=== PATIENT | female | born 1965 | race Caucasian/White ===

== ENCOUNTER 2020-03-02 07:31 | Outpatient (REF) | payer BC, SELFPAY ==
[2020-03-02 11:17] LABS: Free T4 (Free Thyroxine) 1.41 ng/dL (0.71-1.85); Thyroid Stimulating Hormone 0.55 mIU/mL (0.32-4.0)
== END 2020-03-02 07:32 | disposition home or self-care (01) ==
LOC: HO.10HDL 07:31
PROVIDERS: Visit Provider Internal Medicine
DX: E03.9 Hypothyroidism, unspecified (principal)
CPT/HCPCS: 84439; 84443

== ENCOUNTER 2020-07-22 08:09 | Outpatient (REF) | payer BC, SELFPAY ==
[2020-07-22 11:42] LABS: Alanine Aminotransferase 50 U/L (0-31); Albumin Level 4.2 g/dL (3.5-5.0); Alkaline Phosphatase 71 U/L (39-117); Anion Gap 13 (12-20); Aspartate Amino Transferase 34 U/L (5-31); Bilirubin Total 0.6 mg/dL (0.0-1.0); Blood Urea Nitrogen 17 mg/dL (9-16); Calcium 8.7 mg/dL (8.4-10.2); Carbon Dioxide 23 mmol/L (22-29); Chloride 110 mmol/L (96-108); Estimated Glomerular Filt Rate > 60; Glucose Fasting 97 mg/dL (60-99); Potassium 4.6 mmol/L (3.3-5.1); Sodium 141 mmol/L (135-145); Total Protein 6.6 g/dL (6.5-8.0)
== END 2020-07-22 08:10 | disposition home or self-care (01) ==
LOC: HO.10HDL 08:09
PROVIDERS: Visit Provider Internal Medicine
DX: E03.9 Hypothyroidism, unspecified (principal); K21.9 Gastro-esophageal reflux disease without esophagitis
CPT/HCPCS: 36415; 80053; 84439; 84443

== ENCOUNTER 2020-12-14 08:23 | Outpatient (REF) | payer BC, SELFPAY ==
--- NOTE | ~2020-12-14 | US_ITS ---
EXAMINATION: US ABDOMEN COMPLETE CLINICAL INFORMATION: Elevated liver function tests. COMPARISON: Ultrasound abdomen complete dated 09/18/2006. TECHNIQUE: Real-time imaging of the abdominal viscera. FINDINGS: PANCREAS: Normal. ABDOMINAL AORTA: The proximal, mid, and distal segments are normal in caliber. INFERIOR VENA CAVA: Visualized portions are normal. LIVER: There is coarse inhomogeneous increased echogenicity consistent with primary hepatocellular disease, possibly due to hepatic steatosis. The liver is normal in size. The liver contour is normal. No focal hepatic lesion. There is no intrahepatic biliary duct dilatation seen. GALLBLADDER: Normal. The gallbladder is physiologically distended without evidence of stones, sludge, polyps, wall thickening or pericholecystic fluid. There is no tenderness to palpation over the gallbladder. COMMON BILE DUCT: Normal in caliber measuring 0.4 cm in diameter. RIGHT KIDNEY: Normal. No hydronephrosis. No renal calculi or focal parenchymal lesions. The kidney measures 11.7 cm in maximum dimension. LEFT KIDNEY: Normal. No hydronephrosis. No renal calculi or focal parenchymal lesions. The kidney measures 10.6 cm in maximum dimension. SPLEEN: Normal. The spleen measures 9.5 cm in maximum dimension. FREE FLUID: None. US/US abdomen complete IMPRESSION: 1. There is primary hepatocellular disease, possibly due to hepatic steatosis. No other abnormality is appreciated.
== END 2020-12-14 08:24 | disposition home or self-care (01) ==
LOC: HO.US 08:23
PROVIDERS: PCP Internal Medicine; Visit Provider Internal Medicine
DX: R94.5 Abnormal results of liver function studies (principal)
CPT/HCPCS: 76700

== ENCOUNTER 2020-12-22 08:24 | Outpatient (REF) | payer BC, SELFPAY ==
--- NOTE | ~2020-12-22 | MM_ITS ---
EXAMINATION: MM SCREENING DIGITAL BREAST TOMOSYNTHESIS, BILATERAL CLINICAL INFORMATION: Screening. Asymptomatic. The lifetime risk of breast cancer based on the Tyrer-Cuzick Model is 10%. COMPARISON: Mammography: 12/16/2019, 12/10/2018, 11/20/2017, 11/15/2016, 10/25/2015, 10/21/2014 TECHNIQUE: Digital breast tomosynthesis is performed in both the craniocaudal and mediolateral oblique views along with computer-aided detection (CAD). Synthesized 2D images are generated from the tomosynthesis. Additional left CC view is provided. FINDINGS: There are scattered areas of fibroglandular density (ACR BI-RADS breast composition Category b). Left breast is stable, parenchymal pattern similar to prior studies. There is no developing density or interval mass or architectural abnormality. Neither breast shows abnormal calcifications. The bilateral axilla and skin contours are unremarkable. There are questionable architectural changes right breast anterior upper outer quadrant versus summation artifact from superimposed stromal markings. Patient will be recalled for additional imaging. MM/MM tomosynthesis screening BI IMPRESSION: 1. Right: Question of architectural changes anterior upper outer right breast versus summation artifact from superimposed stromal markings. 2. Left: No mammographic evidence of malignancy. ASSESSMENT: BI-RADS 0: Incomplete - Need Additional Imaging Evaluation RECOMMENDATION: 1. Additional views of the right breast (spot MLO, standard ML, spot CC). 2. Targeted ultrasound if warranted after review of the additional views. 3. Radiology department staff will contact the patient for additional imaging. This patient's information was entered into a reminder system with a target due date for their next mammogram.
== END 2020-12-22 08:25 | disposition home or self-care (01) ==
LOC: HO.MAMMO 08:24
PROVIDERS: Visit Provider Internal Medicine
DX: Z12.31 Encounter for screening mammogram for malignant neoplasm of breast (principal)
CPT/HCPCS: 77063; 77067

== ENCOUNTER 2020-12-29 07:49 | Outpatient (REF) | payer BC, SELFPAY ==
--- NOTE | ~2020-12-29 | MM_ITS ---
EXAMINATION: MM DIAGNOSTIC DIGITAL BREAST TOMOSYNTHESIS, RIGHT CLINICAL INFORMATION: Recall from screening for question of architectural changes anterior upper outer right breast versus superimposed summation artifact. COMPARISON: Mammography: 12/22/2020, 12/16/2019, 12/10/2018 TECHNIQUE: Digital breast tomosynthesis is performed. 2D images are generated from the tomosynthesis. The following views are obtained: Spot CC, spot MLO, standard ML FINDINGS: There are scattered areas of fibroglandular density (ACR BI-RADS breast composition Category b). The additional views show no architectural abnormality or developing density. There is no interval mass or suspicious changes. Parenchymal pattern is similar to prior exams. Results are discussed with the patient at time of visit. MM/MM tomosynthesis added views R IMPRESSION: Additional views show no significant changes from prior studies. ASSESSMENT: BI-RADS 2: Benign RECOMMENDATION: Routine annual mammography screening. This patient's information was entered into a reminder system with a target due date for their next mammogram.
== END 2020-12-29 07:50 | disposition home or self-care (01) ==
LOC: HO.MAMMO 07:49
PROVIDERS: PCP Internal Medicine; Visit Provider Internal Medicine
DX: N64.89 Other specified disorders of breast (principal)
CPT/HCPCS: 77061; 77065

== ENCOUNTER 2021-07-12 08:22 | Outpatient (REF) | payer BC, SELFPAY ==
[2021-07-12 10:38] LABS: MANUAL DIFF FLAG NO
[2021-07-12 10:44] LABS: Basophils Percent Auto 0.7 % (0-2); Eosinophils Absolute Auto 0.1 X10*3/uL (0.0-0.4); Eosinophils Percent Auto 2.4 % (0-4); Hematocrit 42.5 % (37.0-47.0); Hemoglobin 13.9 g/dl (12.0-16.0); Imm Gran Abs Auto 0.01 X10*3/uL (0.00-0.03); Imm Gran Pct Auto 0.2 % (0.0-0.4); Lymphocytes Percent Auto 34.3 % (20-40); Mean Corpuscular HGB Conc 32.7 g/dl (31.0-35.0); Mean Corpuscular Hemoglobin 29.8 pg (27.0-33.0); Mean Platelet Volume 10.2 fL (9.4-12.3); Monocytes Absolute Auto 0.5 X10*3/uL (0.1-1.2); Monocytes Percent Auto 7.7 % (2-11); Neutrophils Absolute Auto 3.2 x10*3/uL (2.0-8.3); Neutrophils Percent Auto 54.7 % (45-73); Platelet Count 283 X10*3/uL (160-400); Red Blood Count 4.67 X10*6/uL (4.20-5.50); Red Cell Distribution Width 13.2 % (11.0-16.0); White Blood Count 5.9 X10*3/uL (4.8-10.8)
[2021-07-12 10:50] LABS: Appearance Urine CLEAR; Color Urine YELLOW; Glucose Urine UA NEG (NEG); Leukocyte Esterase Urine NEG (NEG); Nitrite Urine NEG (NEG); Urine Blood TRACE (NEG); Urine Ketones NEG (NEG); Urine Protein NEG (NEG-TRACE)
[2021-07-12 11:00] LABS: Alanine Aminotransferase 62 U/L (0-31); Albumin Level 4.2 g/dL (3.5-5.0); Alkaline Phosphatase 65 U/L (39-117); Anion Gap 9 (12-20); Aspartate Amino Transferase 36 U/L (5-31); Bilirubin Total 0.5 mg/dL (0.0-1.0); Blood Urea Nitrogen 14 mg/dL (9-16); Calcium 9.2 mg/dL (8.4-10.2); Carbon Dioxide 28 mmol/L (22-29); Chloride 108 mmol/L (96-108); Cholesterol 159 mg/dL; Estimated Glomerular Filt Rate > 60; Glucose Fasting 92 mg/dL (60-99); HDL Cholesterol 45 mg/dL; LDL Cholesterol Calculated 100 mg/dl; Potassium 4.3 mmol/L (3.3-5.1); Sodium 141 mmol/L (135-145); Total Protein 6.7 g/dL (6.5-8.0); Triglycerides 74 mg/dL
[2021-07-12 11:07] LABS: Mucus Urine 1+ /LPF; Squamous Epithelial Cell Urine 1+ /LPF; WBC Urine 0-2 /HPF (0-4)
== END 2021-07-12 08:23 | disposition home or self-care (01) ==
LOC: HO.10HDL 08:22
PROVIDERS: Visit Provider Internal Medicine
DX: Z00.00 Encounter for general adult medical examination without abnormal findings (principal); E03.9 Hypothyroidism, unspecified; R79.89 Other specified abnormal findings of blood chemistry; K21.9 Gastro-esophageal reflux disease without esophagitis
CPT/HCPCS: 36415; 80053; 80061; 81001; 84439; 84443; 85025

== ENCOUNTER 2021-12-26 08:21 | Outpatient (REF) | payer BC, SELFPAY ==
--- NOTE | ~2021-12-26 | MM_ITS ---
EXAMINATION: MM SCREENING DIGITAL BREAST TOMOSYNTHESIS, BILATERAL CLINICAL INFORMATION: Screening. Asymptomatic. The lifetime risk of breast cancer based on the Tyrer-Cuzick Model is 10.1%. COMPARISON: Mammography: December 29, 2020 and studies dating back to September 22, 2013 TECHNIQUE: Digital breast tomosynthesis is performed in both the craniocaudal and mediolateral oblique views along with computer-aided detection (CAD). Synthesized 2D images are generated from the tomosynthesis. FINDINGS: There are scattered areas of fibroglandular density (ACR BI-RADS breast composition Category b). There are no significant masses, abnormal calcifications, or other abnormalities. MM/MM tomosynthesis screening BI IMPRESSION: No mammographic evidence of malignancy. ASSESSMENT: BI-RADS 1: Negative RECOMMENDATION: Routine annual mammography screening. This patient's information was entered into a reminder system with a target due date for their next mammogram.
== END 2021-12-26 08:22 | disposition home or self-care (01) ==
LOC: HO.MAMMO 08:21
PROVIDERS: PCP Internal Medicine; Visit Provider Internal Medicine
DX: Z12.31 Encounter for screening mammogram for malignant neoplasm of breast (principal)
CPT/HCPCS: 77063; 77067

== ENCOUNTER 2022-01-17 07:48 | Outpatient (REF) | payer BC, SELFPAY ==
[2022-01-17 10:56] LABS: Alanine Aminotransferase 32 U/L (0-31); Albumin Level 4.1 g/dL (3.5-5.0); Alkaline Phosphatase 73 U/L (39-117); Aspartate Amino Transferase 24 U/L (5-31); Bilirubin Direct 0.2 mg/dL (0.0-0.5); Bilirubin Total 0.5 mg/dL (0.0-1.0); Total Protein 6.7 g/dL (6.5-8.0)
[2022-01-17 11:21] LABS: Free T4 (Free Thyroxine) 1.43 ng/dL (0.71-1.85); Thyroid Stimulating Hormone 0.17 uIU/mL (0.32-4.0)
== END 2022-01-17 07:49 | disposition home or self-care (01) ==
LOC: HO.10HDL 07:48
PROVIDERS: Visit Provider Internal Medicine
DX: E03.9 Hypothyroidism, unspecified (principal); R79.89 Other specified abnormal findings of blood chemistry
CPT/HCPCS: 36415; 80076; 84439; 84443

== ENCOUNTER 2022-04-14 08:32 | Outpatient (REF) | payer BC, SELFPAY ==
[2022-04-14 11:46] LABS: Thyroid Stimulating Hormone 10.52 uIU/mL (0.32-4.0)
[2022-04-14 12:45] LABS: Free T4 (Free Thyroxine) 1.23 ng/dL (0.71-1.85)
== END 2022-04-14 08:33 | disposition home or self-care (01) ==
LOC: HO.10HDL 08:32
PROVIDERS: Visit Provider Internal Medicine
DX: E03.9 Hypothyroidism, unspecified (principal)
CPT/HCPCS: 36415; 84439; 84443

== ENCOUNTER 2022-05-26 10:48 | Outpatient (REF) | payer BC, SELFPAY ==
[2022-05-26 14:08] LABS: Free T4 (Free Thyroxine) 1.22 ng/dL (0.71-1.85); Thyroid Stimulating Hormone 2.97 uIU/mL (0.32-4.0)
== END 2022-05-26 10:49 | disposition home or self-care (01) ==
LOC: HO.10HDL 10:48
PROVIDERS: Visit Provider Internal Medicine
DX: E03.9 Hypothyroidism, unspecified (principal)
CPT/HCPCS: 36415; 84439; 84443

== ENCOUNTER 2022-08-29 07:54 | Outpatient (REF) | payer BC, SELFPAY ==
[2022-08-29 10:42] LABS: MANUAL DIFF FLAG NO
[2022-08-29 10:50] LABS: Basophils Percent Auto 0.7 % (0-2); Eosinophils Absolute Auto 0.1 X10*3/uL (0.0-0.4); Eosinophils Percent Auto 2.2 % (0-4); Hematocrit 44.8 % (37.0-47.0); Hemoglobin 14.6 g/dl (12.0-16.0); Imm Gran Abs Auto 0.02 X10*3/uL (0.00-0.03); Imm Gran Pct Auto 0.3 % (0.0-0.4); Lymphocytes Absolute Auto 2.1 X10*3/uL (1.2-4.9); Lymphocytes Percent Auto 35.2 % (20-40); Mean Corpuscular HGB Conc 32.6 g/dl (31.0-35.0); Mean Corpuscular Hemoglobin 29.7 pg (27.0-33.0); Mean Corpuscular Volume 91.1 fL (80.0-98.0); Mean Platelet Volume 10.2 fL (9.4-12.3); Monocytes Absolute Auto 0.4 X10*3/uL (0.1-1.2); Monocytes Percent Auto 6.7 % (2-11); Neutrophils Absolute Auto 3.3 x10*3/uL (2.0-8.3); Neutrophils Percent Auto 54.9 % (45-73); Platelet Count 288 X10*3/uL (160-400); Red Blood Count 4.92 X10*6/uL (4.20-5.50); Red Cell Distribution Width 13.2 % (11.0-16.0)
[2022-08-29 12:26] LABS: Alanine Aminotransferase 50 U/L (0-31); Albumin Level 4.2 g/dL (3.5-5.0); Alkaline Phosphatase 66 U/L (39-117); Anion Gap 12 (12-20); Aspartate Amino Transferase 31 U/L (5-31); Bilirubin Total 0.7 mg/dL (0.0-1.0); Blood Urea Nitrogen 12 mg/dL (9-16); Calcium 9.1 mg/dL (8.4-10.2); Carbon Dioxide 24 mmol/L (22-29); Chloride 110 mmol/L (96-108); Cholesterol 171 mg/dL; Estimated Glomerular Filt Rate > 60; Glucose Fasting 96 mg/dL (60-99); HDL Cholesterol 49 mg/dL; LDL Cholesterol Calculated 109 mg/dl; Potassium 4.3 mmol/L (3.3-5.1); Sodium 142 mmol/L (135-145); Total Protein 6.5 g/dL (6.5-8.0); Triglycerides 69 mg/dL
[2022-08-29 12:52] LABS: Free T4 (Free Thyroxine) 1.19 ng/dL (0.71-1.85); Thyroid Stimulating Hormone 4.72 uIU/mL (0.32-4.0)
== END 2022-08-29 07:55 | disposition home or self-care (01) ==
LOC: HO.10HDL 07:54
PROVIDERS: Visit Provider Internal Medicine
DX: Z00.00 Encounter for general adult medical examination without abnormal findings (principal); E03.9 Hypothyroidism, unspecified
CPT/HCPCS: 36415; 80053; 80061; 84439; 84443; 85025

== ENCOUNTER 2022-12-27 08:37 | Outpatient (REF) | payer BC, SELFPAY ==
--- NOTE | ~2022-12-27 | MM_ITS ---
EXAMINATION: MM SCREENING DIGITAL BREAST TOMOSYNTHESIS, BILATERAL CLINICAL INFORMATION: Screening. Asymptomatic. COMPARISON: Mammography: 12/26/2021, and dating back to 09/22/2013. TECHNIQUE: Digital breast tomosynthesis is performed in both the craniocaudal and mediolateral oblique views along with computer-aided detection (CAD). Synthesized 2D images are generated from the tomosynthesis. FINDINGS: There are scattered areas of fibroglandular density (ACR BI-RADS breast composition Category b). There are no suspicious masses, suspicious grouped calcifications, or areas of architectural distortion. The parenchymal pattern is stable from prior exams. There are no skin changes. MM/MM tomosynthesis screening BI IMPRESSION: No mammographic evidence of malignancy. ASSESSMENT: BI-RADS BI-RADS 1 - Negative RECOMMENDATION: Routine annual mammography screening. 1 year F/U This examination should not preclude the clinical evaluation of a suspicious palpable abnormality. This patient's information was entered into a reminder system with a target due date for their next mammogram.
== END 2022-12-27 08:38 | disposition home or self-care (01) ==
LOC: HO.MAMMO 08:37
PROVIDERS: PCP Internal Medicine; Visit Provider Internal Medicine
DX: Z12.31 Encounter for screening mammogram for malignant neoplasm of breast (principal)
CPT/HCPCS: 77063; 77067

== ENCOUNTER → 2022-12-27 08:45 | Outpatient (BNV) | payer BC, SELFPAY | PROVIDERS: PCP Internal Medicine; Visit Provider Radiology Diagnostic Radiology | DX: Z12.31 Encounter for screening mammogram for malignant neoplasm of breast (principal) | CPT/HCPCS: 77063; 77067 ==

== ENCOUNTER 2023-02-08 08:48 | Outpatient (REF) | payer BC, SELFPAY ==
[2023-02-08 10:24] LABS: Alanine Aminotransferase 82 U/L (0-31); Albumin Level 4.2 g/dL (3.5-5.0); Alkaline Phosphatase 79 U/L (39-117); Anion Gap 14 (12-20); Aspartate Amino Transferase 42 U/L (5-31); Bilirubin Total 0.4 mg/dL (0.0-1.0); Blood Urea Nitrogen 13 mg/dL (9-16); Calcium 9.5 mg/dL (8.4-10.2); Carbon Dioxide 23 mmol/L (22-29); Chloride 107 mmol/L (96-108); Estimated Glomerular Filt Rate > 60; Glucose Random 99 mg/dL (60-115); Potassium 4.3 mmol/L (3.3-5.1); Sodium 140 mmol/L (135-145)
[2023-02-08 10:31] LABS: Free T4 (Free Thyroxine) 1.27 ng/dL (0.71-1.85); Thyroid Stimulating Hormone 0.54 uIU/mL (0.32-4.0)
== END 2023-02-08 08:49 | disposition home or self-care (01) ==
LOC: HO.LAB 08:48
PROVIDERS: PCP Internal Medicine; Visit Provider Internal Medicine
DX: E03.9 Hypothyroidism, unspecified (principal); R53.83 Other fatigue; R79.89 Other specified abnormal findings of blood chemistry
CPT/HCPCS: 36415; 80053; 84439; 84443; 85025

== ENCOUNTER 2023-03-21 06:25 | Day surgery (SDC) | payer BC, SELFPAY ==
--- NOTE | 2023-03-20 13:43 | HO.ANESPROP2 ---
Documented by User: Martha Campbell NP 03/20/23 13:44 HPI - Anesthesia Eval Consult details Narrative: 57yo F for Colonoscopy PMFSH Past Medical History Medical History (Updated 03/21/23 @ 07:35 by Katja Newman MD) Chiari I malformation Thyroid disease Asthma Surgical History Surgical History (Updated 03/21/23 @ 07:26 by Katja Newman MD) Hx of hand surgery H/O colonoscopy Social History Social History Patient Tobacco Use Status: Never used Tobacco Are you DNR?: No Advance Directives: No Advance Directives Information Provided: Yes Recently lost weight without trying: No Eating poorly because of decreased appetite: No Nutrition Risks: No Nutritional Risk Patient : No Meds Allergies Allergy/AdvReac Type Severity Reaction Status Date / Time walnut Allergy Intermediate TONGUE Unverified 01/22/20 16:12 ITCHES Walnuts Allergy Unknown mouth gets Uncoded 04/05/17 00:00 scratchy Home Medications Medication Instructions Recorded Confirmed Last Taken Type levothyroxine 137 mcg tablet 137 mcg PO DAILY 03/20/23 03/20/23 Unknown History Exam Exam Date and Time: March 20, 2023 1343 Pertinent Lab Results Pertinent Lab Results: Laboratory Tests 02/08/23 09:20 WBC 6.0 Hgb 14.0 Hct 42.6 Plt Count 274 Sodium 140 Potassium 4.3 Chloride 107 Carbon Dioxide 23 BUN 13 Creatinine 0.76 Assessment and Plan Assessment Anesthesia Assessment: Chart Reviewed Documented by User: Katja Newman MD 03/21/23 07:35 HPI - Anesthesia Eval Consult details Narrative: 57 yo female patient for Colonoscopy PMF Active Problems Active Problems: Hypothyroidism Past Medical History Medical History (Updated 03/21/23 @ 07:35 by Katja Newman MD) Chiari I malformation Thyroid disease Asthma Family History Family history of problems with anesthesia: No Surgical History Surgical History (Updated 03/21/23 @ 07:26 by Katja Newman MD) Hx of hand surgery H/O colonoscopy History of Problems with Anesthesia: No Social History Social History Patient Tobacco Use Status: Never used Tobacco Are you DNR?: No Advance Directives: No Advance Directives Information Provided: Yes Recently lost weight without trying: No Eating poorly because of decreased appetite: No Nutrition Risks: No Nutritional Risk Patient : No Meds Allergies Allergy/AdvReac Type Severity Reaction Status Date / Time walnut Allergy Intermediate TONGUE Unverified 01/22/20 16:12 ITCHES Walnuts Allergy Unknown mouth gets Uncoded 04/05/17 00:00 scratchy Home Medications Medication Instructions Recorded Confirmed Last Taken Type levothyroxine 137 mcg tablet 137 mcg PO DAILY 03/20/23 03/20/23 Unknown History Exam Height,Weight and Vital Signs: Height 5 ft 6 in Weight 87.997 kg Vital Signs Temp Pulse Resp BP Pulse Ox O2 Del Method 03/21/23 07:11 97.6 F 85 18 135/77 98 Room Air Airway Mallampati Class: II TM Dist: >3cm Neck ROM: Full Loose/Missing/Broken Teeth: Yes (Missing 1 molar bottom Right. Denies broken or loose teeth. Crowns intact) Heart: RRR Lungs: CTAB Assessment and Plan Assessment Anesthesia Assessment: Anesthesia Plan Discussed Final Anesthetic Review Family History of Problems with Anesthesia: No History of Problems with Anesthesia: No NPO: Yes ASA Class: II Final Preanesthetic Review: No Changes in Pt Med Stat, Meds/Allgs Chart Reviewed, Consent Obtained/Reviewed and Anes Risks/Benef Reviewed Patient Risk: Low Procedure Risk: Low Assessment/Block/Sedation in SS: Assess/Block/Sedation-SS Anesthetic Plan Anesthetic Plan: MAC: Disposition: Standard PACU
[2023-03-21 07:11] VITALS: BP 135/77; PULSE 85; RESP 18; TEMP 36.4; O2SAT 98; BMI 31.3
[2023-03-21] MEDS: Lactated Ringers 1,000 ML 100 ML IVCONT (07:16)
--- NOTE | 2023-03-21 08:27 | PM.OP ---
Brief Operative Note Date of Service: 03/21/23 Pre-op diagnosis: Screening Post-op diagnosis: other (Diverticulosis) Procedure: Colonoscopy to the cecum and TI Surgeon: Sundar Tsai MD Anesthesia: MAC Was an Intelligence Analyst used for this Procedure?: No Estimated blood loss (mL): 0 Pathology: none sent Condition: stable Disposition: PACU
[2023-03-21 08:29] VITALS: BP 90/54; PULSE 88; RESP 18; TEMP 36.4; O2SAT 96
[2023-03-21 08:34] VITALS: BP 110/53
[2023-03-21 08:44] VITALS: BP 109/64; PULSE 85; RESP 18; TEMP 36.6; O2SAT 97
--- NOTE | 2023-03-21 08:55 | OP_ITS ---
DATE OF SERVICE: 03/21/2023 SURGEON: Sundar Tsai MD INDICATIONS: The patient presents for evaluation of colorectal cancer screening, personal history of colon polyps, and family history of colon polyps. Full consent has been obtained from her for this, including risks of bleeding and perforation. PREOPERATIVE DIAGNOSIS: POSTOPERATIVE DIAGNOSIS: PROCEDURE PERFORMED: Colonoscopy to the cecum and terminal ileum. ESTIMATED BLOOD LOSS: COMPLICATIONS: ANESTHESIA: Monitored anesthesia care. ASSISTANTS: SPECIMENS: PREOPERATIVE DIAGNOSES: Colorectal cancer screening, personal history of colon polyps, family history of colon polyps. POSTOPERATIVE DIAGNOSES: Colorectal cancer screening, personal history of colon polyps, family history of colon polyps, sigmoid diverticulosis and internal hemorrhoids. DESCRIPTION OF PROCEDURE: The patient was placed in the left lateral decubitus position. The digital rectal exam revealed no abnormalities. The Olympus video pediatric colonoscope was entered into the rectum and advanced easily to the cecum. Once in the cecum, I did identify normal-appearing cecal pouch with appendiceal orifice and a normal-appearing ileocecal valve. The terminal ileum was cannulated and appeared normal. The scope was withdrawn back in the colon. The entire cecum and ileocecal valve appeared normal. The scope was slowly withdrawn assessing all mucosal surfaces carefully. Preparation was excellent. I did not visualize any sign of polyps, colitis, nor angiodysplasia. There was a mild amount of sigmoid diverticulosis. In the rectum, scope was retroflexed visualizing internal hemorrhoids, but no other pathology. The rectal mucosa appeared normal. Scope was straightened and withdrawn from the patient. She tolerated the procedure well and was returned to the recovery area in stable condition. IMPRESSION: 1. Sigmoid diverticulosis. 2. Internal hemorrhoids. PLAN: I would recommend a repeat colonoscopy in 5 years for further screening. She will otherwise see me on a p.r.n. basis. MD CASTILLO Haro/ROSS / [phone] TEMO
== END 2023-03-21 09:24 | disposition home or self-care (01) ==
PROVIDERS: PCP Internal Medicine; Visit Provider Internal Medicine
PROC: 0DJD8ZZ Inspection of Lower Intestinal Tract, Via Natural or Artificial Opening Endoscopic (ICD-10-PCS; CPT 45378; principal; 2023-03-21 07:30)
DX: Z12.11 Encounter for screening for malignant neoplasm of colon (principal); K57.30 Diverticulosis of large intestine without perforation or abscess without bleeding; K64.8 Other hemorrhoids; Z86.010 Personal history of colon polyps; Z83.719 Family history of colon polyps, unspecified; J45.909 Unspecified asthma, uncomplicated; E03.9 Hypothyroidism, unspecified; Z79.899 Other long term (current) drug therapy
CPT/HCPCS: 45378; J2704

== ENCOUNTER 2023-06-05 09:00 | Outpatient (REF) | payer BC, SELFPAY ==
[2023-06-05 10:07] LABS: Alanine Aminotransferase 43 U/L (0-31); Albumin Level 4.2 g/dL (3.5-5.0); Alkaline Phosphatase 69 U/L (39-117); Anion Gap 12 (12-20); Aspartate Amino Transferase 31 U/L (5-31); Bilirubin Total 0.5 mg/dL (0.0-1.0); Blood Urea Nitrogen 15 mg/dL (9-16); Calcium 9.6 mg/dL (8.4-10.2); Carbon Dioxide 23 mmol/L (22-29); Chloride 111 mmol/L (96-108); Estimated Glomerular Filt Rate > 60; Glucose Random 89 mg/dL (60-115); Potassium 3.9 mmol/L (3.3-5.1); Sodium 142 mmol/L (135-145)
[2023-06-05 10:26] LABS: Free T4 (Free Thyroxine) 1.39 ng/dL (0.71-1.85); Thyroid Stimulating Hormone 0.16 uIU/mL (0.32-4.0)
== END 2023-06-05 09:01 | disposition home or self-care (01) ==
LOC: HO.LAB 09:00
PROVIDERS: PCP Internal Medicine; Visit Provider Internal Medicine
DX: E03.9 Hypothyroidism, unspecified (principal); R79.89 Other specified abnormal findings of blood chemistry
CPT/HCPCS: 36415; 80053; 84439; 84443

== ENCOUNTER 2023-08-15 16:39 | Outpatient (REF) | payer BC, SELFPAY ==
[2023-08-15 18:53] LABS: Free T4 (Free Thyroxine) 1.21 ng/dL (0.71-1.85); Thyroid Stimulating Hormone 0.24 uIU/mL (0.32-4.0)
== END 2023-08-15 16:40 | disposition home or self-care (01) ==
LOC: HO.LAB 16:39
PROVIDERS: PCP Internal Medicine; Visit Provider Internal Medicine
DX: E03.9 Hypothyroidism, unspecified (principal)
CPT/HCPCS: 36415; 84439; 84443

== ENCOUNTER 2024-01-02 08:00 | Outpatient (REF) | payer BC, SELFPAY ==
--- NOTE | ~2024-01-02 | MM_ITS ---
EXAMINATION: MM SCREENING DIGITAL BREAST TOMOSYNTHESIS, BILATERAL CLINICAL INFORMATION: Screening. Asymptomatic. COMPARISON: Mammography: Comparison is made with available priors TECHNIQUE: Digital breast tomosynthesis is performed in both the craniocaudal and mediolateral oblique views along with computer-aided detection (CAD). Synthesized 2D images are generated from the tomosynthesis. FINDINGS: There are scattered areas of fibroglandular density (ACR BI-RADS breast composition Category b). There are no significant masses, abnormal calcifications, or other abnormalities. MM/MM tomosynthesis screening BI IMPRESSION: No mammographic evidence of malignancy. ASSESSMENT: BI-RADS BI-RADS 1 - Negative RECOMMENDATION: Routine annual mammography screening. 1 year F/U This examination should not preclude the clinical evaluation of a suspicious palpable abnormality. This patient's information was entered into a reminder system with a target due date for their next mammogram. Electronically signed by: Lyndsey Rosas DO 01/25/2024 03:54 PM EDT
== END 2024-01-02 08:01 | disposition home or self-care (01) ==
LOC: HO.MAMMO 08:00
PROVIDERS: PCP Internal Medicine; Visit Provider Internal Medicine
DX: Z12.31 Encounter for screening mammogram for malignant neoplasm of breast (principal)
CPT/HCPCS: 77063; 77067

== ENCOUNTER → 2024-01-02 08:15 | Outpatient (BNV) | payer BC, SELFPAY | PROVIDERS: PCP Internal Medicine; Visit Provider Internal Medicine | DX: Z12.31 Encounter for screening mammogram for malignant neoplasm of breast (principal) | CPT/HCPCS: 77063; 77067 ==

== ENCOUNTER 2024-02-12 07:36 | Outpatient (REF) | payer BC, SELFPAY ==
[2024-02-12 07:56] LABS: MANUAL DIFF FLAG NO
[2024-02-12 08:27] LABS: Basophils Absolute Auto 0.1 X10*3/uL (0.0-0.2); Basophils Percent Auto 0.9 % (0-2); Eosinophils Absolute Auto 0.1 X10*3/uL (0.0-0.4); Eosinophils Percent Auto 2.1 % (0-4); Hematocrit 42.1 % (37.0-47.0); Hemoglobin 14.1 g/dl (12.0-16.0); Imm Gran Abs Auto 0.01 X10*3/uL (0.00-0.03); Imm Gran Pct Auto 0.2 % (0.0-0.4); Lymphocytes Absolute Auto 1.9 X10*3/uL (1.2-4.9); Lymphocytes Percent Auto 34.5 % (20-40); Mean Corpuscular HGB Conc 33.5 g/dl (31.0-35.0); Mean Corpuscular Hemoglobin 29.5 pg (27.0-33.0); Mean Corpuscular Volume 88.1 fL (80.0-98.0); Mean Platelet Volume 9.8 fL (9.4-12.3); Monocytes Absolute Auto 0.4 X10*3/uL (0.1-1.2); Monocytes Percent Auto 7.1 % (2-11); Neutrophils Absolute Auto 3.1 x10*3/uL (2.0-8.3); Neutrophils Percent Auto 55.2 % (45-73); Platelet Count 297 X10*3/uL (160-400); Red Blood Count 4.78 X10*6/uL (4.20-5.50); Red Cell Distribution Width 13.1 % (11.0-16.0); White Blood Count 5.6 X10*3/uL (4.8-10.8)
[2024-02-12 09:12] LABS: Alanine Aminotransferase 62 U/L (0-31); Albumin Level 4.1 g/dL (3.5-5.0); Alkaline Phosphatase 73 U/L (39-117); Anion Gap 10 (12-20); Aspartate Amino Transferase 35 U/L (5-31); Bilirubin Total 0.6 mg/dL (0.0-1.0); Blood Urea Nitrogen 12 mg/dL (9-16); Calcium 9.3 mg/dL (8.4-10.2); Carbon Dioxide 26 mmol/L (22-29); Chloride 110 mmol/L (96-108); Estimated Glomerular Filt Rate > 60; Glucose Random 93 mg/dL (60-115); Potassium 4.2 mmol/L (3.3-5.1); Sodium 142 mmol/L (135-145); Total Protein 6.8 g/dL (6.5-8.0)
[2024-02-12 09:29] LABS: Free T4 (Free Thyroxine) 1.63 ng/dL (0.71-1.85); Thyroid Stimulating Hormone 0.12 uIU/mL (0.32-4.0)
== END 2024-02-12 07:37 | disposition home or self-care (01) ==
LOC: HO.LAB 07:36
PROVIDERS: PCP Internal Medicine; Visit Provider Internal Medicine
DX: E03.9 Hypothyroidism, unspecified (principal); R79.89 Other specified abnormal findings of blood chemistry
CPT/HCPCS: 36415; 80053; 84439; 84443; 85025

== ENCOUNTER 2024-05-02 08:51 | Outpatient (REF) | payer BC, SELFPAY ==
[2024-05-02 11:24] LABS: Alanine Aminotransferase 40 U/L (0-31); Albumin Level 4.1 g/dL (3.5-5.0); Alkaline Phosphatase 70 U/L (39-117); Aspartate Amino Transferase 28 U/L (5-31); Bilirubin Direct 0.1 mg/dL (0.0-0.5); Bilirubin Total 0.4 mg/dL (0.0-1.0); Cholesterol 143 mg/dL (<200); Total Protein 6.8 g/dL (6.5-8.0)
[2024-05-02 11:41] LABS: Free T4 (Free Thyroxine) 1.49 ng/dL (0.71-1.85); Thyroid Stimulating Hormone 0.36 uIU/mL (0.32-4.0)
== END 2024-05-02 08:52 | disposition home or self-care (01) ==
LOC: HO.10HDL 08:51
PROVIDERS: Visit Provider Internal Medicine
DX: E03.9 Hypothyroidism, unspecified (principal); R79.89 Other specified abnormal findings of blood chemistry
CPT/HCPCS: 36415; 80076; 82465; 84439; 84443

== ENCOUNTER 2024-09-26 07:58 | Outpatient (REF) | payer BC, SELFPAY ==
--- OUTSIDE RECORDS SUMMARY | 2024-09-26 08:00 | XMS_ITS | Patient Health Record ---
Author Organization [facility] Address [address] [place] [id number] Care Team Providers Care Foreign Broadcast Specialist Name Role Phone Tony Cardoza MD Primary Care Provider Sundar Ren Unavailable [phone] Allergies Allergen (clinical drug ingredient) Drug/Non Drug Allergy documented on EMR Reaction Allergy Type Onset Date Status walnuts (uncoded) Unknown Allergy Ac tive Reason For Referral No Information Medications Medication SIG (Take, Route, Frequency, Duration) Notes Start Date End Date Status Levothyroxine Sodium 137 MCG TAKE 1 TABL ET BY MOUTH EVERY DAY Oral for 90 Active Social History Tobacco Use: Social History Observation Description Date Details (start date - stop date) Never Smoker NA - NA Tobacco Use/Smoking Question Answer Notes Patient is a nonsmoker Alcohol Screen Question Answer Notes Did you have a drink contain ing alcohol in the past year? Yes How often did you have a dri nk containing alcohol in the past year? 2 to 3 times a week (3 points) How many drinks did you have on a typical day when you were drinking in the past year? 1 or 2 drinks (0 point) Points 3 Interpretation Positive Section Notes: Nonsmoker, occ alcohol Problems Problem Type SNOMED Code ICD Code Onset Dates Problem Status W/U Status Risk Notes Problem 576500839 Personal history of colonic polyps (Z86.010) Active confirmed Problem Diverticular disease of colon (567598302) Diverticulosis of large intestine without perforation or abscess without bleeding (K57.30) Active confirmed Problem 037001385 Family history o f colonic polyps (Z83.71) Active confirmed Problem 029242224 Screen for colon cancer (Z12.11) Active confirmed Problem [id number] Preprocedural examination (Z01.818) Active confirmed Plan Of Treatment Future Test Test Name Order Date COLONOSCOPY 12/21/2022 Insurance Providers Payer Name Payer Address Payer Phone Subscriber Number Group Number Insured Name Patient Relationship to Insured Coverage Start Date Coverage End Date [facility] [employer] [address] [place] [address] [id number] AISLINN GUTIERREZ Self - patient is the insured Medical (General) History Medical History History ICD Code Denies [place],DM,CVA,Lung disease,renal dise ase History of asthma but inactive now Colonoscopies in 2007 with john pollard and in approx [address] Balbuena--the latter colonoscopy had polyps that were removed Hypothyroidism Surgical History Surgery Date(Month/Year) Chiari malformiation- decompression by Andre Gates 2004 Left index finger
[2024-09-26 08:20] LABS: MANUAL DIFF FLAG NO
[2024-09-26 08:50] LABS: Basophils Absolute Auto 0.1 X10*3/uL (0.0-0.2); Basophils Percent Auto 0.9 % (0-2); Eosinophils Absolute Auto 0.1 X10*3/uL (0.0-0.4); Eosinophils Percent Auto 2.1 % (0-4); Hematocrit 40.8 % (37.0-47.0); Hemoglobin 13.7 g/dl (12.0-16.0); Imm Gran Abs Auto 0.02 X10*3/uL (0.00-0.03); Imm Gran Pct Auto 0.3 % (0.0-0.4); Lymphocytes Absolute Auto 2.2 X10*3/uL (1.2-4.9); Mean Corpuscular HGB Conc 33.6 g/dl (31.0-35.0); Mean Corpuscular Volume 89.3 fL (80.0-98.0); Monocytes Absolute Auto 0.4 X10*3/uL (0.1-1.2); Monocytes Percent Auto 7.2 % (2-11); Neutrophils Absolute Auto 3.1 x10*3/uL (2.0-8.3); Neutrophils Percent Auto 52.5 % (45-73); Platelet Count 300 X10*3/uL (160-400); Red Blood Count 4.57 X10*6/uL (4.20-5.50); Red Cell Distribution Width 12.9 % (11.0-16.0); White Blood Count 5.8 X10*3/uL (4.8-10.8)
[2024-09-26 09:43] LABS: Alanine Aminotransferase 76 U/L (0-31); Albumin Level 4.1 g/dL (3.5-5.0); Alkaline Phosphatase 83 U/L (39-117); Anion Gap 11 (12-20); Aspartate Amino Transferase 44 U/L (5-31); Bilirubin Total 0.3 mg/dL (0.0-1.0); Blood Urea Nitrogen 16 mg/dL (9-16); Calcium 9.6 mg/dL (8.4-10.2); Carbon Dioxide 27 mmol/L (22-29); Chloride 110 mmol/L (96-108); Cholesterol 158 mg/dL (<200); Estimated Glomerular Filt Rate > 60; Glucose Random 96 mg/dL (60-115); HDL Cholesterol 41 mg/dL (>40); LDL Cholesterol Calculated 97 mg/dL (<100); Potassium 4.8 mmol/L (3.3-5.1); Sodium 143 mmol/L (135-145); TSH reflex Free T4 0.88 uIU/mL (0.32-4.0); Total Protein 6.8 g/dL (6.5-8.0); Triglycerides 100 mg/dL (<150)
== END 2024-09-26 07:59 | disposition home or self-care (01) ==
LOC: HO.LAB 07:58
PROVIDERS: PCP Internal Medicine; Visit Provider Internal Medicine
DX: Z13.228 Encounter for screening for other metabolic disorders (principal); Z13.220 Encounter for screening for lipoid disorders; E07.9 Disorder of thyroid, unspecified; Z13.0 Encounter for screening for diseases of the blood and blood-forming organs and certain disorders involving the immune mechanism; Z13.6 Encounter for screening for cardiovascular disorders
CPT/HCPCS: 36415; 80053; 80061; 84443; 85025

== ENCOUNTER 2024-10-16 15:00 | Outpatient (AMB) | payer BC, SELFPAY ==
--- NOTE | 2024-10-16 15:02 | A.OFFPC_ITS ---
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: No Accompanied by: Self / Same As Patient Allergies walnut Allergy (Intermediate, Verified 10/16/24 15:02) TONGUE ITCHES Walnuts Allergy (Unknown, Uncoded 04/05/17 00:00) mouth gets scratchy Tobacco use date assessed: 10/16/24 Dental Screening Dental Screen Date: 10/16/24 Did you have a dental visit in the last 12 months?: Yes Did you have a dental problem in the last 6 months where you did not have access to dental care?: No HPI HPI Comments History of Present Illness Details The patient is a 58 year old female with a past medical history of hypothyroid, fatty liver, diverticulosis, colonic polyps, chiari malformation presenting for follow up. Last seen by pcp in February for cpe Hypothyroid -on levothyroxine 137mcg daily. Last TSH within normal. Elevated LFTs-had prior abd us with fatty liver colonoscopy 03/2023-q 5 years. 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 HEENT: Denies changes in vision and hearing. RESPIRATORY: Denies SOB and cough. CV: Denies palpitations and CP GI: Denies abdominal pain, nausea, vomiting and diarrhea. : Denies dysuria and urinary frequency. MSK: Denies new myalgia and joint pain. SKIN: Denies rash and pruritus. NEUROLOGICAL: Denies headache PSYCHIATRIC: Denies recent changes in mood. PHYSICAL EXAM: GENERAL: Alert and oriented x 3. NAD EYES: EOMI. Anicteric. HENT: Moist mucous membranes. No scleral icterus. No cervical lymphadenopathy. LUNGS: Clear to auscultation bilaterally. CARDIOVASCULAR: Regular rate and rhythm. No murmur. No JVD. ABDOMEN: Soft, non-tender +bs EXTREMITIES: No edema. Non-tender. SKIN: No rashes or lesions. Warm. NEUROLOGIC: No focal neurological deficits. CN II-XII grossly intact PSYCHIATRIC: Cooperative. Appropriate mood and affect FOR[facility]LY [facility], [facility] Medical History (Updated 10/19/24 @ 21:16 by Mile Moeller MD) Chiari I malformation Thyroid disease Asthma Surgical History Hx of hand surgery H/O colonoscopy Family History Mother No problems noted. Father No problems noted. Social History Housing: House Patient Tobacco Use Status: Never used Tobacco e-Cigarette/Vaping Use: Never Used Current occupational status: employed Current occupational exposures/hazards: No Cognitive needs: No Hearing needs: No Vision needs: Yes (rx glasses) Questionnaire PHQ-9 Over the last 2 weeks, how often have you been bothered by any of the following problems? 1. Little interest or pleasure in doing things: not at all 2. Feeling down, depressed, or hopeless: not at all 3. Trouble falling or staying asleep, or sleeping too much: not at all 4. Feeling tired or having little energy: not at all 5. Poor appetite or overeating: not at all 6. Feeling bad about yourself - or that you are a failure or have let yourself or your family down: not at all 7. Trouble concentrating on things, such as reading the newspaper or watching television: not at all 8. Moving or speaking so slowly that other people could have noticed. Or the opposite - being so fidgety or restless that you have been moving around a lot more than usual: not at all 9. Thoughts that you would be better off or of hurting yourself in some way: not at all Total score: 0 Depression Screening Interpretation: Negative Depression Screening Done: Yes 11462 - PHQ-9 Billing: Yes Source: Developed by Drs. Sundar Castillo, Verna Crowell, Angel Diaz and colleagues, with an educational joel from [employer]. Thrive Questionnaire Date Thrive assessed: 10/16/24 I am a: Patient Within the past 12 months, did the food you bought not last and you didn't have the money to get more?: Never true Within the past 12 months, did you worry whether your food would run out before you got money to buy more?: Never true Do you have trouble paying for medicines?: No Do you have trouble getting transportation to medical appointments?: No Do you have trouble paying your heating and electricity bill?: No Do you have trouble taking care of your child, family member or friend?: No Do you have trouble with day-to-day activities such as bathing, preparing meals, shopping, managing finances, etc.?: No Are you currently unemployed and looking for a job?: No Are you interested in more education?: No THRIVE Score: 0 AUDIT C Alcohol Use Questionnaire (AUDIT-C) 1. How often do you have a drink containing alcohol?: Never 3. How often do you have six or more drinks on one occasion?: Never Total Score: 0 APRIL-7 AMB Questionnaire APRIL-7 Date APRIL - 7 assessed: 10/16/24 Feeling nervous, anxious, or on edge: 0 = Not at all Not being able to stop or control worryin = Not at all Worrying too much about different things: 0 = Not at all Trouble relaxin = Not at all Being so restless that it is hard to sit still: 0 = Not at all Becoming easily annoyed or irritable: 0 = Not at all Feeling afraid as if something awful might happen: 0 = Not at all Total APRIL-7 score (0-4 normal; 5-9 mild; 10-14 moderate; 15-21 severe): 0 Source: Developed by Drs. Sundar Castillo, Verna Crowell, Angel Diaz and colleagues, with an educational joel from [employer]. Physical exam (Primary Care) Vital Signs: Last Vital Signs Temp 97.3 F 10/16/24 15:05 Pulse 86 10/16/24 15:05 BP 136/80 10/16/24 15:05 Pulse Ox 99 10/16/24 15:05 Oxygen Delivery Method Room Air 10/16/24 15:05 BMI result Body Mass Index 32.9 Tobacco/Smoking Status: Tobacco use Status Tobacco use date assessed 10/16/24 10/16/24 15:03 Patient Tobacco Use Status Never used Tobacco 10/16/24 15:03 e-Cigarette/Vaping Use Never Used 10/16/24 15:03 PHQ-9: PHQ-9 Score PHQ-9: Total score 0 10/16/24 15:29 Depression Screening Interpretation: Negative Thrive Assessment: Date of Thrive Assessment Date Thrive assessed 10/16/24 10/16/24 15:03 Coding Level of Care Code New Pt Level 4 (03552) Complex EM visit Add On G2211 Diagnoses Thyroid disease E07.9 Screening for metabolic disorder Z13.228 Screening for hyperlipidemia Z13.220 Screening, deficiency anemia, iron Z13.0 Additional Codes PHQ-9 - 02569 - PHQ-9 Billing: Yes ([id number]) Assessment & Plan Assessment & Plan (1) Thyroid disease: Comment: hypo Code(s): E07.9 - Disorder of thyroid, unspecified Category: Medical (2) Screening for metabolic disorder: Code(s): Z13.228 - Encounter for screening for other metabolic disorders Category: Medical (3) Screening for hyperlipidemia: Code(s): Z13.220 - Encounter for screening for lipoid disorders Category: Medical (4) Screening, deficiency anemia, iron: Code(s): Z13.0 - Encounter for screening for diseases of the blood and blood-forming organs and certain disorders involving the immune mechanism Category: Medical Plan 58 yo presenting to [facility] care past medical, surgical, social reviewed Labs ordered, mammo ordered Hypothyroid-check tsh Orders: Orders MM screening mammo BI 10/16/24 Z12.31 - Encounter for screening mammogram for malignant neoplasm of breast Comprehensive Met. Panel 10/16/24 E07.9 - Disorder of thyroid, unspecified, R79.89 - Other specified abnormal findings of blood chemistry, Z13.0 - Encounter for screening for diseases of the blood and blood-forming organs and certain disorders involving the immune mechanism, Z13.220 - Encounter for screening for lipoid disorders, Z13.228 - Encounter for screening for other metabolic disorders Complete Blood Count Auto Diff 10/16/24 E07.9 - Disorder of thyroid, unspecified, R79.89 - Other specified abnormal findings of blood chemistry, Z13.0 - Encounter for screening for diseases of the blood and blood-forming organs and certain disorders involving the immune mechanism, Z13.220 - Encounter for screening for lipoid disorders, Z13.228 - Encounter for screening for other metabolic disorders TSH reflex Free T4 10/16/24 E07.9 - Disorder of thyroid, unspecified, R79.89 - Other specified abnormal findings of blood chemistry, Z13.0 - Encounter for screening for diseases of the blood and blood-forming organs and certain disorders involving the immune mechanism, Z13.220 - Encounter for screening for lipoid disorders, Z13.228 - Encounter for screening for other metabolic disorders Liver Panel 10/16/24 E07.9 - Disorder of thyroid, unspecified, R79.89 - Other specified abnormal findings of blood chemistry, Z13.0 - Encounter for screening for diseases of the blood and blood-forming organs and certain disorders involving the immune mechanism, Z13.220 - Encounter for screening for lipoid disorders, Z13.228 - Encounter for screening for other metabolic disorders Lipid Panel 10/16/24 E07.9 - Disorder of thyroid, unspecified, R79.89 - Other specified abnormal findings of blood chemistry, Z13.0 - Encounter for screening for diseases of the blood and blood-forming organs and certain disorders involving the immune mechanism, Z13.220 - Encounter for screening for lipoid disorders, Z13.228 - Encounter for screening for other metabolic disorders
[2024-10-16 15:05] VITALS: BP 136/80; PULSE 86; TEMP 36.3; O2SAT 99; BMI 32.9
--- OUTSIDE RECORDS SUMMARY | 2024-10-16 17:40 | XMS_ITS | Patient Health Record ---
Author Organization [facility] Address [address] [place] [id number] Care Team Providers Care Clinical Care Coordinator Name Role Phone Tony Cardoza MD Primary Care Provider Sundar Ren Unavailable [phone] Allergies Allergen (clinical drug ingredient) Drug/Non Drug [...] Problem Status W/U Status Risk Notes Problem 173762179 Personal history of colonic polyps (Z86.010) Active confirmed Problem Diverticular disease of colon (234323863) Diverticulosis of large intestine without perforation or abscess without bleeding (K57.30) Active confirmed Problem 501949145 Family history o f colonic polyps (Z83.71) Active confirmed Problem 388030068 Screen for colon cancer (Z12.11) Active confirmed Problem [id number] Preprocedural examination (Z01.818) Active confirmed Plan Of Treatment Future Test Test Name Order Date COLONOSCOPY 12/21/2022 Insurance Providers Payer Name Payer Address Payer Phone Subscriber Number Group Number Insured Name Patient Relationship to Insured Coverage Start Date Coverage End Date [facility] [employer] [facility]S [address] [place] [address] [id number] AISLINN GUTIERREZ Self - patient is the insured Medical (General) History Medical History History ICD Code Denies AR,DM,CVA,Lung disease,renal dise ase History of asthma but inactive now Colonoscopies in 2007 with john pollard and in approx [address] Balbuena--the latter colonoscopy had polyps that were removed Hypothyroidism Surgical History Surgery Date(Month/Year) Chiari malformiation- decompression by Andre Gates 2004 Left index finger
== END 2024-10-16 15:44 | disposition home or self-care (01) ==
LOC: HO.HMCHD 15:00
PROVIDERS: PCP Internal Medicine; Visit Provider Internal Medicine
DX: E07.9 Disorder of thyroid, unspecified (principal); Z13.228 Encounter for screening for other metabolic disorders; Z13.220 Encounter for screening for lipoid disorders; Z13.0 Encounter for screening for diseases of the blood and blood-forming organs and certain disorders involving the immune mechanism

== ENCOUNTER → 2024-10-16 15:00 | Outpatient (BNVA) | payer BC, SELFPAY | PROVIDERS: PCP Internal Medicine; Visit Provider Internal Medicine | DX: E03.9 Hypothyroidism, unspecified (principal); K76.0 Fatty (change of) liver, not elsewhere classified; Z79.899 Other long term (current) drug therapy; Z13.31 Encounter for screening for depression; Z13.30 Encounter for screening examination for mental health and behavioral disorders, unspecified | CPT/HCPCS: 96127 ==

== ENCOUNTER 2025-01-24 07:36 | Outpatient (REF) | payer BC, SELFPAY ==
--- OUTSIDE RECORDS SUMMARY | 2025-01-24 07:38 | XMS_ITS | Patient Health Record ---
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 Role Phone [employer] (RETIRED) Tony ARANA Primary Care Provide r Lizzeth TsaiSundar Lizzeth [phone] Allergies Allergen (clinical drug ingredient) Drug/Non Drug [...] Problem Status W/U Status Risk Notes Problem 437186643 Personal history of colonic polyps (Z86.010) Active confirmed Problem Diverticular disease of colon (550845459) Diverticulosis of large intestine without perforation or abscess without bleeding (K57.30) Active confirmed Problem 945059528 Family history o f colonic polyps (Z83.71) Active confirmed Problem 925322704 Screen for colon cancer (Z12.11) Active confirmed Problem [id number] Preprocedural examination (Z01.818) Active confirmed Plan Of Treatment Future Test Test Name Order Date COLONOSCOPY 12/21/2022 Insurance Providers Payer Name Payer Address Payer Phone Subscriber Number Group Number Insured Name Patient Relationship to Insured Coverage Start Date Coverage End Date [facility] PROFESSIONAL CLAIMS [address] [place] [address] [id number] AISLINN GUTIERREZ Self - patient is [...]
== END 2025-01-24 07:37 | disposition home or self-care (01) ==
LOC: HO.MAMMO 07:36
PROVIDERS: PCP Student in an Organized Health Care Education/Training Program; Visit Provider Student in an Organized Health Care Education/Training Program
DX: Z12.31 Encounter for screening mammogram for malignant neoplasm of breast (principal)
CPT/HCPCS: 77063; 77067

== ENCOUNTER → 2025-01-24 07:45 | Outpatient (BNV) | payer BC, SELFPAY | PROVIDERS: PCP Student in an Organized Health Care Education/Training Program; Visit Provider Internal Medicine | DX: Z12.31 Encounter for screening mammogram for malignant neoplasm of breast (principal) | CPT/HCPCS: 77063; 77067 ==

== ENCOUNTER 2025-04-10 07:45 | Outpatient (REF) | payer BC, SELFPAY ==
[2025-04-10 11:31] LABS: MANUAL DIFF FLAG NO
[2025-04-10 11:38] LABS: Hematocrit 45.2 % (37.0-47.0); Hemoglobin 14.4 g/dl (12.0-16.0); Imm Gran Abs Auto 0.01 X10*3/uL (0.00-0.03); Imm Gran Pct Auto 0.2 % (0.0-0.4); Lymphocytes Absolute Auto 2.4 X10*3/uL (1.2-4.9); Mean Corpuscular HGB Conc 31.9 g/dl (31.0-35.0); Mean Corpuscular Hemoglobin 29.3 pg (27.0-33.0); Mean Corpuscular Volume 92.1 fL (80.0-98.0); NRBC Abs Auto 0.000 X10*3/uL (0.0-0.012); NRBC Pct Auto 0.0 /100WBC (0.0-0.2); Platelet Count 306 X10*3/uL (160-400); Red Blood Count 4.91 X10*6/uL (4.20-5.50); White Blood Count 6.4 X10*3/uL (4.8-10.8)
[2025-04-10 12:03] LABS: Alanine Aminotransferase 30 U/L (0-31); Albumin Level 4.5 g/dL (3.5-5.0); Alkaline Phosphatase 81 U/L (39-117); Anion Gap 14 (12-20); Aspartate Amino Transferase 36 U/L (5-31); Blood Urea Nitrogen 17 mg/dL (9-16); Calcium 9.7 mg/dL (8.4-10.2); Carbon Dioxide 25 mmol/L (22-29); Chloride 109 mmol/L (96-108); Cholesterol 161 mg/dL (<200); Estimated Glomerular Filt Rate > 60; HDL Cholesterol 52 mg/dL (>40); Potassium 4.5 mmol/L (3.3-5.1); Sodium 143 mmol/L (135-145); Total Protein 7.2 g/dL (6.5-8.0); Triglycerides 63 mg/dL (<150)
== END 2025-04-10 07:46 | disposition home or self-care (01) ==
LOC: HO.WFDLDS 07:45
PROVIDERS: Visit Provider Internal Medicine
DX: Z13.0 Encounter for screening for diseases of the blood and blood-forming organs and certain disorders involving the immune mechanism (principal); Z13.220 Encounter for screening for lipoid disorders; Z13.228 Encounter for screening for other metabolic disorders; R79.89 Other specified abnormal findings of blood chemistry; E07.9 Disorder of thyroid, unspecified
CPT/HCPCS: 36415; 80053; 80061; 82248; 84443; 85025

== ENCOUNTER 2025-04-16 08:48 | Outpatient (AMB) | payer BC, SELFPAY ==
--- NOTE | 2025-04-16 08:50 | A.OFFPC_ITS ---
Vital Signs 04/16/25 08:53 Height 5 ft 6 in Weight 194 lb BMI 31.3 BP 124/72 Blood Pressure Location Rt brachial Position Sitting Pulse 89 Pulse Source Pulse Oximeter Temp 97.3 F Temp Source Temporal Artery Scan Pulse Oximetry (%) 99 Oxygen Delivery Method Room Air Intake Visit Reasons: 6 Month F/U Welt Rougher Required: No Accompanied by: Self / Same As Patient Allergies walnut Allergy (Intermediate, Verified 10/16/24 15:02) TONGUE ITCHES Walnuts Allergy (Unknown, Uncoded 04/05/17 00:00) mouth gets scratchy Medication List - Last Reconciled 04/16/25 by Sandro Cuello MD cetirizine (All Day Allergy (cetirizine)) 10 mg PO DAILY PRN levothyroxine 137 mcg PO DAILY multivitamin 1 tab PO DAILY Tobacco use date assessed: 04/16/25 Dental Screening Dental Screen Date: 04/16/25 Did you have a dental visit in the last 12 months?: Yes Did you have a dental problem in the last 6 months where you did not have access to dental care?: No HPI HPI Comments History of Present Illness Details History of Present Illness The patient is a 59 year old female presenting for a follow-up visit to review recent blood work and discuss sinus complaints. She has hypothyroidism and is taking levothyroxine 137 mcg, with her TSH noted to be 0.5. She denies symptoms of fatigue, exhaustion, or sweaty hands. Her lab work shows liver numbers that have been slightly elevated for a few years, but they have recently improved, coming down from a high of 76 for ALT. An ultrasound in 2020 showed possible hepatic steatosis (fatty liver). Her total cholesterol is 161, which does not require treatment at this time. The patient reports complaints related to her sinuses and has been taking Sudafed. She is attempting to lose weight and has successfully lost about 10 pounds by working out more. She acknowledges she needs to drink more water. She is up to date on her COVID, flu, and shingles vaccinations. Medical History: - Hypothyroidism - Hepatic steatosis, diagnosed via ultra sound in 2020 - Elevated liver enzymes - Hypercholesterolemia - Sinusitis Medications: - Levothyroxine 137 mcg for hypothyroidi sm - Sudafed as needed for sinus complaints Family History: - Reports a family history of hepatic st eatosis, as her brother also has the condition. Diagnostic Results: - Recent blood work: No flags, counts ar e normal. - TSH: 0.5 - Liver enzymes: ALT was previously as h igh as 76 but has come down. - Total cholesterol: 161 - Ultrasound (2020): Showed possible hep atic steatosis. Social History - Exercise: The patient has been working out more. - Diet: Advised to limit red meats, fats , oils, and butter to help lower cholesterol. - Weight Management: The patient is acti vely trying to lose weight and has lost approximately 10 pounds. - Hydration: The patient recognizes that she is not drinking enough water. [facility] Medical History (Updated 04/16/25 @ 09:15 by Sandro Cuello MD) Hypercholesteremia Hepatic steatosis Sinusitis Hypothyroidism Chiari I malformation Thyroid disease Asthma Surgical History Hx of hand surgery H/O colonoscopy Family History Mother No problems noted. Father No problems noted. Social History Housing: House Patient Tobacco Use Status: Never used Tobacco e-Cigarette/Vaping Use: Never Used Current occupational status: employed Current occupational exposures/hazards: No Cognitive needs: No Hearing needs: No Vision needs: Yes (rx glasses) Questionnaire Thrive Questionnaire Date Thrive assessed: 10/16/24 AUDIT C Alcohol Use Questionnaire (AUDIT-C) 2. How many drinks containing alcohol do you have on a typical day when you are drinking?: 1 or 2 3. How often do you have six or more drinks on one occasion?: Never Total Score: 0 APRIL-7 AMB Questionnaire APRIL-7 Date APRIL - 7 assessed: 10/16/24 Source: Developed by Drs. Sundar Castillo, Verna Crowell, Angel Diaz and colleagues, with an educational joel from [employer]. Review of Systems Narrative Review of Systems - HEENT: Reports sinus issues. Denies headaches or vision changes. - Constitutional: Denies unexpected weight loss. - Cardiovascular: Denies chest pain. - Respiratory: Denies shortness of breath. - Gastrointestinal: Denies nausea or vomiting. Reports normal bowel movements. - Genitourinary: Reports normal urination. - Endocrine: Denies fatigue, exhaustion, or sweaty hands. All systems reviewed & are unremarkable except as reviewed in HPI and above Physical exam (Primary Care) Vital Signs: Last Vital Signs Temp 97.3 F 04/16/25 08:53 Pulse 89 04/16/25 08:53 BP 124/72 04/16/25 08:53 Pulse Ox 99 04/16/25 08:53 Oxygen Delivery Method Room Air 04/16/25 08:53 BMI result Body Mass Index 31.3 Tobacco/Smoking Status: Tobacco use Status Tobacco use date assessed 04/16/25 04/16/25 08:51 Patient Tobacco Use Status Never used Tobacco 04/16/25 08:51 e-Cigarette/Vaping Use Never Used 04/16/25 08:51 Thrive Assessment: Date of Thrive Assessment Date Thrive assessed 10/16/24 04/16/25 08:51 Narrative Physical Exam General: Alert and oriented, Well nourished, No acute distress. Eye: Pupils are equal, round and reactive to light, Intact accommodation, Extraocular movements are intact, Normal conjunctiva, Vision unchanged. HENT: Normocephalic, Atraumatic, Tympanic membranes are clear, Normal hearing, Oral mucosa is moist, No pharyngeal erythema, Ear canals patent. Respiratory: Lungs CTA bilaterally, No wheeze, Respirations are non-labored. Cardiovascular: Regular rate, Regular rhythm, S1 auscultated, S2 auscultated, No murmur, Good pulses equal in all extremities, Normal peripheral perfusion, No edema. Gastrointestinal: Soft, Non-tender, Non-distended, Normal bowel sounds, No organomegaly. Musculoskeletal: Normal range of motion, Normal strength, No tenderness, No swelling, No deformity, Normal gait. Integumentary: Warm, Dry, [place], Intact. Neurologic: Alert, Oriented, Normal sensory, Normal motor function, No focal defects, Cranial Nerves II-XII are grossly intact, Normal deep tendon reflexes. Psychiatric: Cooperative, Appropriate mood & affect, Normal judgment. Coding Level of Care Code Est Pt Level 4 (62742) Add On Problem Visit Only Diagnoses Other specified hypothyroidism E03.8 Hypothyroidism type: other Other sinusitis, unspecified chronicity J32.9 Chronicity: unspecified Sinusitis location: other Hepatic steatosis K76.0 Hypercholesteremia E78.00 Assessment & Plan Assessment & Plan (1) Hypothyroidism: Comment: - Her condition is well-controlled on levothyroxine 137 mcg, with a TSH of 0.5. - She denies any associated symptoms. - Plan is to continue current medication and monitor with labs. Code(s): E03.9 - Hypothyroidism, unspecified Category: Medical Qualifiers: Hypothyroidism type: other Qualified Code(s): E03.8 - Other specified hypothyroidism (2) Sinusitis: Comment: - The patient is experiencing sinus congestion. - She was advised to use a humidifier and switch from Sudafed to an etgr-eit-ipkpxsx second-generation antihistamine like cetirizine (Aller-Ana) due to the risk of reverse vasoconstriction with Sudafed. - A prescription for cetirizine will be sent to her pharmacy, although she may purchase it at [facility] [employer] [facility]. Code(s): J32.9 - Chronic sinusitis, unspecified Category: Medical Qualifiers: Chronicity: unspecified Sinusitis location: other Qualified Code(s): J32.9 - Chronic sinusitis, unspecified (3) Hepatic steatosis: Comment: - The patient has a history of elevated liver enzymes and possible fatty liver confirmed by a 2020 ultrasound. - Her liver enzymes have shown improvement and have come down, which is attributed to her recent weight loss and increased exercise. - Hepatitis has not been screened for. - The plan is to continue encouraging her lifestyle modifications and to recheck labs in six months. - Hepatitis screening will be considered at her next physical if numbers remain elevated. Code(s): K76.0 - Fatty (change of) liver, not elsewhere classified Category: Medical (4) Hypercholesteremia: Comment: - Her total cholesterol is 161, which is considered borderline but does not require medication at this time. - She was advised to reduce her intake of red meats, fats, oils, and butter to help lower her cholesterol, which will also benefit her hepatic steatosis. - Her cholesterol will be rechecked with her next set of labs in six months. Code(s): E78.00 - Pure hypercholesterolemia, unspecified Category: Medical Plan: Health Maintenance: - Vaccinations: Up to date on COVID-19, influenza, and shingles (Shingrix) shots. - Weight Management: The patient has successfully lost 10 pounds through increased physical activity. She is encouraged to continue these efforts to further improve her fatty liver and overall health. - Diet: Advised to limit intake of red meats, fats, oils, and butter to help manage cholesterol and hepatic steatosis. - Screening: Will repeat blood work, including a lipid panel and A1c, in six months to monitor her conditions. - Follow-up: Scheduled for a return visit in six months for a physical exam and lab review. Patient was informed and verbally consented to the use of an ambient scribe for clinic note documentation during this visit. Plan I reviewed the patient's recent blood work, which was excellent overall. We discussed her sinus complaints, and I advised her to stop taking Sudafed, explaining its potential for reverse vasoconstriction, and recommended she use an fwmc-gqh-pypbyin cetirizine product instead, along with a humidifier. We discussed her hypothyroidism, which is well-controlled on her current dose of levothyroxine, as evidenced by her TSH of 0.5. I noted the long-standing mild elevation in her liver enzymes and their recent improvement, which correlates with her 10-pound weight loss and increased exercise. I explained that this supports the diagnosis of fatty liver, which was seen on her 2020 ultrasound, and commended her for the positive impact her lifestyle changes have had. We discussed her cholesterol of 161, which is good but could be improved with dietary changes, including limiting red meat and fatty foods; this would also benefit her liver. I informed the patient that no medication for cholesterol is needed at this time. We confirmed she is up to date on her COVID, flu, and shingles vaccines. I recommended she continue what she is doing as it is working well. We scheduled a follow-up visit in six months to repeat blood work, including A1c and cholesterol, to monitor her progress. Orders: Orders Complete Blood Count Auto Diff 6 Months Z00.00 - Encounter for general adult medical examination without abnormal findings Comprehensive Met. Panel 6 Months Z00.00 - Encounter for general adult medical examination without abnormal findings Hepatitis A,B,C Profile 6 Months Z00.00 - Encounter for general adult medical examination without abnormal findings Lipid Panel 6 Months Z00.00 - Encounter for general adult medical examination without abnormal findings TSH reflex Free T4 6 Months Z00.00 - Encounter for general adult medical examination without abnormal findings Hemoglobin A1c 6 Months Z00.00 - Encounter for general adult medical examination without abnormal findings HIV Ab/Ag 6 Months Z00.00 - Encounter for general adult medical examination w ithout abnormal findings Microalbumin, Random (w Creat) 6 Months Z00.00 - Encounter for general adult medical examination without abnormal findings Vitamin D 25-OH Total 6 Months Z00.00 - Encounter for general adult medical examination without abnormal findings Syphilis Screen 6 Months Z00.00 - Encounter for general adult medical examination without abnormal findings Medications: New cetirizine (All Day Allergy (cetirizine)) 10 mg PO DAILY PRN 90 caps 3RF allergy symptoms Patient Instructions: - For your sinus symptoms, stop taking Sudafed. Instead, you can use an mcyw-piy-gmcyzif allergy medication called cetirizine (brand name Aller-Ana). You can find this at [facility] [employer]. Also, use a humidifier at home to help with congestion. - Continue taking your levothyroxine 137 mcg as prescribed for your thyroid. - Keep up the great work with your exercise and diet. The weight you have lost has already started to improve your liver health. - Try to limit your intake of red meats, butter, oils, and other fatty foods to help lower your cholesterol. - Remember to drink more water throughout the day. - We will see you back in the office in six months for a follow-up visit and physical. - You will need to get blood work done the week before your next appointment so we can check your cholesterol, A1c, and other levels again.
[2025-04-16 08:53] VITALS: BP 124/72; PULSE 89; TEMP 36.3; O2SAT 99; BMI 31.3
== END 2025-04-16 09:13 | disposition home or self-care (01) ==
PROVIDERS: PCP Student in an Organized Health Care Education/Training Program; Visit Provider Student in an Organized Health Care Education/Training Program
DX: E03.8 Other specified hypothyroidism (principal); J32.9 Chronic sinusitis, unspecified; K76.0 Fatty (change of) liver, not elsewhere classified; E78.00 Pure hypercholesterolemia, unspecified